=== PATIENT | male | born 1960 | race African-American/Black ===

== ENCOUNTER 2017-05-25 16:43 | Outpatient (CLI) | payer OTHER ==
--- NOTE | 2017-05-25 19:57 | RAD ---
LUMBAR SPINE THREE VIEWS: 05/25/1717 Grade I spondylolisthesis of L5 on S1 is present. It appears to be due to very significant facet art hritis at this level. Facet arthritis is also present prominently at L4-L5 and to a lesser extent L3 -L4. I see no pars defects. There is slight disc space narrowing at L5-S1. No fractures were seen. C urvature of the spine could be positional. The SI joints are symmetrical. IMPRESSION: Severe facet arthritis in the lower lumbar spine which is also leading to spondylolisthesis of L5 on S1. Further workup with MRI would be useful to identify any neural impingement. POS: HOME
== END 2017-05-25 16:44 | disposition home or self-care (01) ==
LOC: BURRAD 16:43
PROVIDERS: ATTEND Family Medicine
DX: M54.32 Sciatica, left side (principal); M46.96 Unspecified inflammatory spondylopathy, lumbar region; M43.17 Spondylolisthesis, lumbosacral region
CPT/HCPCS: 72100